=== PATIENT | female | born 1970 | race Caucasian/White ===

== ENCOUNTER 2022-03-31 14:11 | Inpatient (IN) | payer OTHER ==
[~2022-03-31] VITALS: Ht 162.6 cm; Wt 89.8 kg
[2022-03-31] MEDS ORDERED: SODIUM CHLORIDE 0.9% 1,000 ML IV ONE (15:00)
[2022-03-31] MEDS ORDERED: HYDROMORPHONE HCL/PF 2MG/ML CPJ IV ONE ×3 (15:00→22:15)
[2022-03-31 16:15] LABS: BASOPHILS % 0.5 % (0.0-2.0); HEMATOCRIT. 38.8 % (36.0-48.0); HEMOGLOBIN. 13.6 g/dL (12.0-16.0); LYMPHOCYTES % 10.6 % (20.0-50.0); MEAN CORPUSCULAR HEMOGLOBIN 30.7 pg (28.0-32.0); MEAN CORPUSCULAR VOLUME 87.6 fL (81.0-99.0); MEAN PLATELET VOLUME 7.3 fl (7.4-10.4); MONOCYTES % 5.9 % (2.0-8.0); PLATELET 315 x1000/uL (130-400); RED BLOOD CELL COUNT 4.44 mill/uL (4.2-5.4); RED CELL DISTRIBUTION WIDTH 20.3 % (11.6-14.6)
[2022-03-31 16:20] LABS: PROTHROMBIN TIME 11.2 sec (9.6-11.0)
[2022-03-31 16:33] LABS: CHLORIDE 104 mEq/L (98-107)
[2022-03-31] MEDS ORDERED: POTASSIUM CHLORIDE 20MEQ TABLET SR PO NR (17:15)
[2022-03-31] MEDS ORDERED: SODIUM CHLORIDE 0.9% 1,000 ML IV NR (17:15)
[2022-03-31] MEDS ORDERED: DIPHENHYDRAMINE 50MG/ML VIAL IV ONE ×2 (17:30→22:15)
[2022-03-31] MEDS: SODIUM CHLORIDE 0.9% 1,000 ML IV NR ×2 (18:10→20:22)
[2022-03-31 18:17] LABS: CLARITY URINE CLEAR (CLEAR); COLOR URINE YELLOW (YELLOW); KETONES URINE TRACE (NEGATIVE); LEUKOCYTE ESTERASE URINE NEGATIVE (NEGATIVE); NITRITE URINE NEGATIVE (NEGATIVE); OCCULT BLOOD URINE NEGATIVE (NEGATIVE); PH URINE 5.5 (4.5-8.0); PROTEIN URINE NEGATIVE (NEGATIVE); SPECIFIC GRAVITY URINE 1.018 (1.005-1.030); UROBILINOGEN URINE 0.2 E.U./dL (0.2-1.0)
[2022-03-31 19:10] LABS: PHOSPHORUS 2.2 mg/dL (2.5-4.9)
[2022-03-31] MEDS ORDERED: KETAMINE HCL 50 MG/ML 10ML IV PRN (19:30)
[2022-03-31] MEDS ORDERED: KETAMINE HCL IV PRN (19:45)
[2022-03-31] MEDS ORDERED: SODIUM CHLORIDE 0.9% IV PRN (19:45)
[2022-03-31] MEDS ORDERED: GUAIFENESIN 200MG/10ML SUGAR FREE UDC PO PRN (21:15)
[2022-03-31] MEDS ORDERED: TRAMADOL 50MG TABLET PO PRN (21:15)
[2022-03-31] MEDS ORDERED: CLONIDINE 0.1MG TABLET PO PRN (21:15)
[2022-03-31] MEDS ORDERED: KETOROLAC 15MG/ML VIAL IV PRN (21:15)
[2022-03-31] MEDS ORDERED: NITROGLYCERIN 0.4MG TABLET SL SL PRN (21:15)
[2022-03-31] MEDS ORDERED: ACETAMINOPHEN 325MG TABLET PO PRN ×2 (21:15)
[2022-03-31] MEDS ORDERED: IPRATROPIUM/ALBUTEROL 0.5-3(2.5)MG/3ML NEB NEB PRN (21:15)
[2022-03-31] MEDS ORDERED: MAGNESIUM/ALUMINUM HYDROXIDE/SIMETHICONE 30ML UDC PO PRN (21:15)
[2022-03-31] MEDS ORDERED: LORAZEPAM 0.5MG TABLET PO PRN (21:15)
[2022-03-31] MEDS ORDERED: ONDANSETRON HCL 4MG/2ML INJ IV PRN (21:15)
[2022-03-31] MEDS: SODIUM CHLORIDE 0.9% 1,000 ML IV SCH (21:45)
[2022-03-31 21:59] LABS: T4 FREE 1.66 ng/dL (0.76-1.46)
[2022-03-31] MEDS ORDERED: PAMIDRONATE DISODIUM 90 MG in SODIUM CHLORIDE 0.9% 1,000 ML IV NR (22:00)
[2022-03-31] MEDS ORDERED: IOHEXOL-350 100 ML BOTTLE ONE (22:15)
[2022-03-31 22:25] LABS: VITAMIN B12 SERUM > 2000.0 pg/mL (211-911)
[2022-03-31] MEDS: ENOXAPARIN 40MG/0.4ML SYR SUBCUT SCH (23:06)
[2022-04-01] MEDS: MORPHINE SULFATE 2 MG/ML CPJ (NOT FOR IM USE) IV PRN ×2 (03:26→09:17)
[2022-04-01] MEDS: ZOLPIDEM TARTRATE 5MG TABLET PO PRN (03:30)
[2022-04-01 05:49] LABS: BASOPHILS % 0.6 % (0.0-2.0); EOSINOPHILS % 0.2 % (0.0-5.0); HEMATOCRIT. 34.7 % (36.0-48.0); HEMOGLOBIN. 11.8 g/dL (12.0-16.0); LYMPHOCYTES % 15.4 % (20.0-50.0); MEAN CORPUSCULAR HEMOGLOBIN 30.5 pg (28.0-32.0); MEAN CORPUSCULAR VOLUME 89.5 fL (81.0-99.0); MONOCYTES % 10.9 % (2.0-8.0); NEUTROPHILS % 72.9 % (40.0-76.0); PLATELET 262 x1000/uL (130-400); RED BLOOD CELL COUNT 3.88 mill/uL (4.2-5.4); RED CELL DISTRIBUTION WIDTH 19.9 % (11.6-14.6)
[2022-04-01 06:32] LABS: CHLORIDE 111 mEq/L (98-107)
[2022-04-01 08:50] VITALS: BP 182/78
[2022-04-01 08:53] VITALS: BP 182/78
[2022-04-01 09:19] VITALS: BP_SYST 180
[2022-04-01] MEDS ORDERED: DICL1TAB56 PO (09:33)
[2022-04-01] MEDS ORDERED: GABA-532 PO (09:33)
[2022-04-01] MEDS ORDERED: HYDR-4346 MT (09:33)
[2022-04-01] MEDS ORDERED: PALB125C PO (09:33)
[2022-04-01] MEDS ORDERED: KETOROLAC 15MG/ML VIAL IV PRN (11:45)
[2022-04-01] MEDS ORDERED: NALOXONE HCL 0.4MG/ML VIAL IV PRN (11:45)
[2022-04-01 12:00] VITALS: BP 150/74
[2022-04-01] MEDS: FAMOTIDINE 20MG TABLET PO SCH ×2 (12:07→20:04)
[2022-04-01] MEDS: TRAMADOL 50MG TABLET PO PRN (12:08)
[2022-04-01] MEDS: LISINOPRIL 20MG TABLET PO SCH ×2 (12:09→19:49)
[2022-04-01 12:24] LABS: *AMPHETAMINES SCREEN URINE NEGATIVE (NEGATIVE); *BARBITURATES SCREEN URINE NEGATIVE (NEGATIVE); *BENZODIAZEPINES SCREEN URINE NEGATIVE (NEGATIVE); *COCAINE SCREEN URINE NEGATIVE (NEGATIVE); CANNABINOID URINE SCREEN NEGATIVE (NEGATIVE); METHADONE URINE SCREEN NEGATIVE (NEGATIVE); OPIATES URINE SCREEN PRESUMTIVE POSITIVE (NEGATIVE); PHENCYCLIDINE URINE SCREEN NEGATIVE (NEGATIVE)
[2022-04-01 16:00] VITALS: BP 149/75
[2022-04-01 20:00] VITALS: BP 154/80
[2022-04-01] MEDS: SODIUM CHLORIDE 0.9% 1,000 ML IV SCH (20:03)
[2022-04-01] MEDS: ENOXAPARIN 40MG/0.4ML SYR SUBCUT SCH (20:04)
[2022-04-01] MEDS: MORPHINE SULFATE 4 MG/ML CPJ (NOT FOR IM USE) IV PRN (20:08)
[2022-04-02] VITALS: BP 145/80
[2022-04-02] MEDS: MORPHINE SULFATE 4 MG/ML CPJ (NOT FOR IM USE) IV PRN ×5 (00:24→21:22)
[2022-04-02] MEDS: ZOLPIDEM TARTRATE 5MG TABLET PO PRN (01:32)
[2022-04-02 04:00] VITALS: BP 142/78
[2022-04-02 06:42] LABS: HEMATOCRIT 33.7 % (36.0-48.0); HEMOGLOBIN 11.8 g/dL (12.0-16.0); MEAN CORPUSCULAR VOLUME 88.6 fL (81.0-99.0); PLATELET 234 x1000/uL (130-400)
[2022-04-02 07:14] LABS: CHLORIDE 106 mEq/L (98-107)
[2022-04-02 07:32] LABS: PHOSPHORUS 2.5 mg/dL (2.5-4.9)
[2022-04-02 08:00] VITALS: BP 131/71
[2022-04-02] MEDS ORDERED: POTASSIUM CHLORIDE 20MEQ TABLET SR PO NR (08:00)
[2022-04-02] MEDS ORDERED: MAGNESIUM 2 G PREMIX 50 ML IV NR (08:00)
[2022-04-02] MEDS: TRAMADOL 50MG TABLET PO PRN (09:27)
[2022-04-02] MEDS: LISINOPRIL 20MG TABLET PO SCH ×2 (09:29→21:00)
[2022-04-02] MEDS: FAMOTIDINE 20MG TABLET PO SCH ×2 (09:29→21:23)
[2022-04-02 12:00] VITALS: BP 128/75
[2022-04-02] MEDS: SODIUM CHLORIDE 0.9% 1,000 ML IV SCH (13:18)
[2022-04-02 16:00] VITALS: BP 122/68
[2022-04-02 20:00] VITALS: BP 109/62
[2022-04-02] MEDS: ENOXAPARIN 40MG/0.4ML SYR SUBCUT SCH (21:23)
[2022-04-03] VITALS: BP 121/70
[2022-04-03] MEDS: ZOLPIDEM TARTRATE 5MG TABLET PO PRN ×2 (00:39→22:45)
[2022-04-03 04:00] VITALS: BP 134/78
[2022-04-03] MEDS: SODIUM CHLORIDE 0.9% 1,000 ML IV SCH ×2 (05:50→17:20)
[2022-04-03] MEDS: MORPHINE SULFATE 4 MG/ML CPJ (NOT FOR IM USE) IV PRN ×4 (05:50→21:05)
[2022-04-03 08:00] VITALS: BP 133/74
[2022-04-03] MEDS: TRAMADOL 50MG TABLET PO PRN ×2 (08:56→17:20)
[2022-04-03] MEDS: FAMOTIDINE 20MG TABLET PO SCH ×2 (08:57→21:04)
[2022-04-03] MEDS: LISINOPRIL 20MG TABLET PO SCH ×2 (08:57→21:00)
[2022-04-03 10:28] LABS: HEMOGLOBIN 11.9 g/dL (12.0-16.0); MEAN CORPUSCULAR HEMOGLOBIN 30.9 pg (28.0-32.0); MEAN CORPUSCULAR VOLUME 88.4 fL (81.0-99.0); PLATELET 268 x1000/uL (130-400); RED BLOOD CELL COUNT 3.85 mill/uL (4.2-5.4); RED CELL DISTRIBUTION WIDTH 19.4 % (11.6-14.6)
[2022-04-03 10:37] LABS: CHLORIDE 107 mEq/L (98-107)
[2022-04-03 10:45] LABS: PHOSPHORUS 2.4 mg/dL (2.5-4.9)
[2022-04-03 12:00] VITALS: BP 131/75
[2022-04-03 16:00] VITALS: BP 114/67
[2022-04-03 20:00] VITALS: BP 133/70
[2022-04-03] MEDS: ENOXAPARIN 40MG/0.4ML SYR SUBCUT SCH (21:04)
[2022-04-04] VITALS: BP 129/71
[2022-04-04 04:00] VITALS: BP 137/74
[2022-04-04] MEDS: SODIUM CHLORIDE 0.9% 1,000 ML IV SCH (05:59)
[2022-04-04] MEDS: MORPHINE SULFATE 4 MG/ML CPJ (NOT FOR IM USE) IV PRN ×3 (06:00→21:03)
[2022-04-04 08:00] VITALS: BP 133/67
[2022-04-04 08:03] LABS: CHLORIDE 108 mEq/L (98-107)
[2022-04-04 08:07] LABS: PHOSPHORUS 2.1 mg/dL (2.5-4.9)
[2022-04-04] MEDS: LISINOPRIL 20MG TABLET PO SCH ×2 (09:29→21:59)
[2022-04-04] MEDS: TRAMADOL 50MG TABLET PO PRN (09:29)
[2022-04-04] MEDS: FAMOTIDINE 20MG TABLET PO SCH ×2 (09:29→21:02)
[2022-04-04] MEDS ORDERED: HYDROCODONE/ACETAMINOPHEN 10/325MG TABLET PO PRN (11:00)
[2022-04-04 12:00] VITALS: BP 130/66
[2022-04-04] MEDS ORDERED: POTASSIUM PHOS,M-BASIC-D-BASIC 20 MMOL in DEXT 5% WATER 243.3333 ML IV ONE (15:00)
[2022-04-04 16:00] VITALS: BP 138/73
[2022-04-04] MEDS: HYDROCODONE/ACETAMINOPHEN 10/325MG TABLET PO PRN (17:39)
[2022-04-04 20:00] VITALS: BP 118/60
[2022-04-04] MEDS: ENOXAPARIN 40MG/0.4ML SYR SUBCUT SCH (21:02)
[2022-04-04] MEDS: ZOLPIDEM TARTRATE 5MG TABLET PO PRN (22:01)
[2022-04-05] VITALS: BP 133/73
[2022-04-05] MEDS: MORPHINE SULFATE 4 MG/ML CPJ (NOT FOR IM USE) IV PRN ×7 (00:07→23:36)
[2022-04-05 04:00] VITALS: BP 137/77
[2022-04-05 07:24] LABS: HEMATOCRIT 34.4 % (36.0-48.0); HEMOGLOBIN 12.2 g/dL (12.0-16.0); MEAN CORPUSCULAR VOLUME 87.1 fL (81.0-99.0); PLATELET 318 x1000/uL (130-400); RED BLOOD CELL COUNT 3.95 mill/uL (4.2-5.4); RED CELL DISTRIBUTION WIDTH 19.3 % (11.6-14.6)
[2022-04-05 07:42] LABS: CHLORIDE 107 mEq/L (98-107)
[2022-04-05 07:51] LABS: PHOSPHORUS 2.3 mg/dL (2.5-4.9)
[2022-04-05 08:00] VITALS: BP 142/73
[2022-04-05] MEDS: DOCUSATE SODIUM 100MG CAPSULE PO PRN (09:41)
[2022-04-05] MEDS: FAMOTIDINE 20MG TABLET PO SCH ×2 (09:41→20:19)
[2022-04-05] MEDS: LISINOPRIL 20MG TABLET PO SCH ×2 (09:41→20:20)
[2022-04-05 12:00] VITALS: BP 132/63
[2022-04-05] MEDS ORDERED: POTASSIUM PHOS,M-BASIC-D-BASIC 20 MMOL in DEXT 5% WATER 243.3333 ML IV NR (15:30)
[2022-04-05 16:00] VITALS: BP 141/70
[2022-04-05 20:00] VITALS: BP 130/67
[2022-04-05] MEDS: ENOXAPARIN 40MG/0.4ML SYR SUBCUT SCH (20:21)
[2022-04-06] VITALS: BP 114/59
[2022-04-06] MEDS: MORPHINE SULFATE 4 MG/ML CPJ (NOT FOR IM USE) IV PRN ×4 (03:09→23:43)
[2022-04-06 04:00] VITALS: BP 123/71
[2022-04-06 08:00] VITALS: BP 135/70
[2022-04-06 08:22] LABS: HEMOGLOBIN 12.5 g/dL (12.0-16.0); MEAN CORPUSCULAR HEMOGLOBIN 31.3 pg (28.0-32.0); MEAN CORPUSCULAR VOLUME 87.8 fL (81.0-99.0); PLATELET 323 x1000/uL (130-400); RED BLOOD CELL COUNT 3.99 mill/uL (4.2-5.4); RED CELL DISTRIBUTION WIDTH 19.6 % (11.6-14.6)
[2022-04-06 08:29] LABS: CHLORIDE 107 mEq/L (98-107)
[2022-04-06] MEDS: FAMOTIDINE 20MG TABLET PO SCH ×2 (08:31→21:30)
[2022-04-06] MEDS: LISINOPRIL 20MG TABLET PO SCH ×2 (08:31→21:30)
[2022-04-06 08:37] LABS: PHOSPHORUS 2.3 mg/dL (2.5-4.9)
[2022-04-06 12:00] VITALS: BP 124/82
[2022-04-06] MEDS: DOCUSATE SODIUM 100MG CAPSULE PO PRN (13:36)
[2022-04-06] MEDS: HYDROCODONE/ACETAMINOPHEN 10/325MG TABLET PO PRN (13:37)
[2022-04-06 16:00] VITALS: BP 143/77
[2022-04-06] MEDS ORDERED: POTASSIUM PHOS,M-BASIC-D-BASIC 20 MMOL in DEXT 5% WATER 243.3333 ML IV NR (17:30)
[2022-04-06 20:00] VITALS: BP 121/69
[2022-04-06] MEDS: ENOXAPARIN 40MG/0.4ML SYR SUBCUT SCH (21:31)
[2022-04-06] MEDS ORDERED: ALPRAZOLAM 0.5 MG TABLET PO SCH (23:30)
[2022-04-06] MEDS ORDERED: ALPRAZOLAM 0.25 MG TABLET PO SCH (23:49)
[2022-04-07] VITALS: BP 127/66
[2022-04-07 04:00] VITALS: BP 128/68
[2022-04-07] MEDS: MORPHINE SULFATE 4 MG/ML CPJ (NOT FOR IM USE) IV PRN ×5 (06:32→20:55)
[2022-04-07 08:00] VITALS: BP 126/74
[2022-04-07 08:43] LABS: CHLORIDE 108 mEq/L (98-107)
[2022-04-07] MEDS: FAMOTIDINE 20MG TABLET PO SCH ×2 (08:57→20:47)
[2022-04-07] MEDS: LISINOPRIL 20MG TABLET PO SCH ×2 (08:59→20:47)
[2022-04-07] MEDS: ALPRAZOLAM 0.5 MG TABLET PO SCH ×2 (08:59→16:40)
[2022-04-07] MEDS ORDERED: ALPRAZOLAM 0.25 MG TABLET PO SCH (09:00)
[2022-04-07 12:00] VITALS: BP 124/73
[2022-04-07 16:00] VITALS: BP 136/76
[2022-04-07] MEDS: DOCUSATE SODIUM 100MG CAPSULE PO PRN (16:40)
[2022-04-07] MEDS ORDERED: NALOXONE HCL 0.4MG/ML VIAL IV PRN (17:00)
[2022-04-07 20:00] VITALS: BP 135/72
[2022-04-07] MEDS: ENOXAPARIN 40MG/0.4ML SYR SUBCUT SCH (20:46)
[2022-04-08] VITALS: BP 134/72
[2022-04-08] MEDS: MORPHINE SULFATE 4 MG/ML CPJ (NOT FOR IM USE) IV PRN ×5 (01:21→21:54)
[2022-04-08 04:00] VITALS: BP 130/70
[2022-04-08 07:13] LABS: HEMATOCRIT 37.9 % (36.0-48.0); HEMOGLOBIN 13.1 g/dL (12.0-16.0); MEAN CORPUSCULAR HEMOGLOBIN 30.8 pg (28.0-32.0); MEAN CORPUSCULAR VOLUME 89.1 fL (81.0-99.0); PLATELET 346 x1000/uL (130-400); RED BLOOD CELL COUNT 4.25 mill/uL (4.2-5.4); RED CELL DISTRIBUTION WIDTH 19.3 % (11.6-14.6)
[2022-04-08 07:26] LABS: CHLORIDE 105 mEq/L (98-107)
[2022-04-08 08:00] VITALS: BP 122/68
[2022-04-08] MEDS: FAMOTIDINE 20MG TABLET PO SCH ×2 (09:16→21:59)
[2022-04-08] MEDS: ALPRAZOLAM 0.5 MG TABLET PO SCH ×2 (09:16→17:18)
[2022-04-08] MEDS: LISINOPRIL 20MG TABLET PO SCH ×2 (09:17→22:00)
[2022-04-08 12:00] VITALS: BP 133/61
[2022-04-08 16:00] VITALS: BP 134/70
[2022-04-08 20:00] VITALS: BP 116/67
[2022-04-08] MEDS: ENOXAPARIN 40MG/0.4ML SYR SUBCUT SCH (22:00)
[2022-04-09] VITALS: BP 115/67
[2022-04-09] MEDS: MORPHINE SULFATE 4 MG/ML CPJ (NOT FOR IM USE) IV PRN ×5 (03:53→23:01)
[2022-04-09 04:00] VITALS: BP 119/64
[2022-04-09 08:00] VITALS: BP 125/64
[2022-04-09] MEDS: ALPRAZOLAM 0.5 MG TABLET PO SCH ×2 (08:25→18:52)
[2022-04-09] MEDS: FAMOTIDINE 20MG TABLET PO SCH ×2 (08:25→20:29)
[2022-04-09] MEDS: LISINOPRIL 20MG TABLET PO SCH ×2 (08:26→20:29)
[2022-04-09 12:00] VITALS: BP 116/60
[2022-04-09 16:00] VITALS: BP 126/68
[2022-04-09 20:00] VITALS: BP 109/64
[2022-04-09] MEDS: ENOXAPARIN 40MG/0.4ML SYR SUBCUT SCH (20:28)
[2022-04-10] VITALS: BP 119/75
[2022-04-10 01:00] VITALS: BP 126/68
[2022-04-10] MEDS: MORPHINE SULFATE 4 MG/ML CPJ (NOT FOR IM USE) IV PRN (01:00)
== END 2022-04-10 01:13 | disposition short-term general hospital (02) | DRG 543 ==
LOC: ER 14:11 → EDBD 14:11 → MICUSO 04-01 00:15 → 6WST 04-01 08:50 → 6EST 04-05 17:42
PROVIDERS: ADMIT Internal Medicine; ATTEND Internal Medicine
DX: M84.552A Pathological fracture in neoplastic disease, left femur, initial encounter for fracture (principal); C79.51 Secondary malignant neoplasm of bone; D68.59 Other primary thrombophilia; E44.1 Mild protein-calorie malnutrition; I10 Essential (primary) hypertension; E83.39 Other disorders of phosphorus metabolism; E87.6 Hypokalemia; E83.42 Hypomagnesemia; D63.8 Anemia in other chronic diseases classified elsewhere; R74.01 Elevation of levels of liver transaminase levels; Z20.822 Contact with and (suspected) exposure to COVID-19; R73.03 Prediabetes; E66.9 Obesity, unspecified; E83.52 Hypercalcemia; E88.09 Other disorders of plasma-protein metabolism, not elsewhere classified; Z68.33 Body mass index [BMI] 33.0-33.9, adult; Z90.13 Acquired absence of bilateral breasts and nipples; Z92.3 Personal history of irradiation; Z92.21 Personal history of antineoplastic chemotherapy; Z85.3 Personal history of malignant neoplasm of breast
CPT/HCPCS: 36415; 71045; 71275; 72170; 72195; 73552; 80053; 80305; 81003; 82330; 82607; 82728; 82746; 83036; 83540; 83550; 83735; 83970; 84100; 84439; 84443; 85025; 85027; 85379; 87426; 93306; 93970; 97161; 99291; C9803; J1170; J1200; J1650; J1885; J2270; J2430; J3475; J3490; J7030; J7040; J7060; Q9967; U0003; U0005; A4315